=== PATIENT | male | born 1995 | race African-American/Black ===

== ENCOUNTER 2019-02-06 02:55 | Emergency (ER) | payer SELFPAY ==
[2019-02-06] MEDS ORDERED: Morphine 4 MG/ML VIAL ONE (04:02)
[2019-02-06] MEDS ORDERED: Morphine 2 MG/ML SYRINGE ONE (04:03)
--- NOTE | 2019-02-06 11:06 | RAD ---
PORTABLE UPRIGHT FRONTAL RADIOGRAPH CHEST: 02/06/2019 HISTORY: Pain. COMPARISON: None. FINDINGS: The lungs are clear. The heart and mediastinal contours are unremarkable. IMPRESSION: No acute findings. POS: [facility]
== END 2019-02-06 06:30 | disposition home or self-care (01) ==
LOC: ERS 02:55
DX: K43.9 Ventral hernia without obstruction or gangrene (principal); F41.9 Anxiety disorder, unspecified
CPT/HCPCS: 71045; 96374; J2270